=== PATIENT | male | born 1990 | race Caucasian/White ===

== ENCOUNTER 2017-09-10 18:38 | Emergency (ER) | payer OTHER ==
[~2017-09-10] VITALS: Ht 177.8 cm; Wt 68.0 kg
[2017-09-10 18:46] VITALS: Ht 177.8 cm; Wt 68.0 kg
[2017-09-10 20:38] VITALS: BP 121/83
== END 2017-09-10 20:38 | disposition home or self-care (01) ==
LOC: ED 18:38
DX: S01.81XA Laceration without foreign body of other part of head, initial encounter (principal); S01.512A Laceration without foreign body of oral cavity, initial encounter; W18.30XA Fall on same level, unspecified, initial encounter; Y93.89 Activity, other specified; Y92.89 Other specified places as the place of occurrence of the external cause; Y99.8 Other external cause status
CPT/HCPCS: J2001

== ENCOUNTER 2017-09-12 10:35 | Emergency (ER) | payer OTHER ==
[~2017-09-12] VITALS: Ht 177.8 cm; Wt 68.2 kg
[2017-09-12 10:47] VITALS: BP 118/74; Ht 177.8 cm; Wt 68.2 kg
== END 2017-09-12 12:25 | disposition home or self-care (01) ==
LOC: ED 10:35
DX: S01.511D Laceration without foreign body of lip, subsequent encounter (principal); W22.8XXD Striking against or struck by other objects, subsequent encounter; F17.210 Nicotine dependence, cigarettes, uncomplicated

== ENCOUNTER 2017-09-15 14:55 | Emergency (ER) | payer OTHER ==
[~2017-09-15] VITALS: Ht 177.8 cm; Wt 68.9 kg
[2017-09-15 15:06] VITALS: Ht 177.8 cm; Wt 68.9 kg
[2017-09-15 17:12] VITALS: BP 125/69
== END 2017-09-15 17:17 | disposition home or self-care (01) ==
LOC: ED 14:55
DX: S01.81XD Laceration without foreign body of other part of head, subsequent encounter (principal); X58.XXXD Exposure to other specified factors, subsequent encounter

== ENCOUNTER 2018-10-16 09:04 | Emergency (ER) | payer OTHER ==
[~2018-10-16] VITALS: Ht 177.8 cm; Wt 69.9 kg
[2018-10-16 09:16] VITALS: BP 116/79; Ht 177.8 cm; Wt 69.9 kg
== END 2018-10-16 11:24 | disposition home or self-care (01) ==
LOC: ED 09:04
DX: S16.1XXA Strain of muscle, fascia and tendon at neck level, initial encounter (principal); V43.52XA Car driver injured in collision with other type car in traffic accident, initial encounter; Y93.I9 Activity, other involving external motion; Y92.413 State road as the place of occurrence of the external cause; Y99.8 Other external cause status

== ENCOUNTER 2019-04-30 15:15 | Emergency (ER) | payer OTHER ==
[~2019-04-30] VITALS: Ht 180.3 cm; Wt 67.1 kg
[2019-04-30 15:22] VITALS: Ht 180.3 cm; Wt 67.1 kg
[2019-04-30 16:36] VITALS: BP 131/81
== END 2019-04-30 16:36 | disposition home or self-care (01) ==
LOC: ED 15:15
DX: S99.921A Unspecified injury of right foot, initial encounter (principal); X58.XXXA Exposure to other specified factors, initial encounter; Y93.89 Activity, other specified; Y92.89 Other specified places as the place of occurrence of the external cause; Y99.8 Other external cause status